=== PATIENT | male | born 1955 | race African-American/Black ===

== ENCOUNTER 2017-04-09 13:02 | Inpatient (IN) | payer MEDICARE, MEDICAID ==
[2017-04-09] MEDS ORDERED: Sodium Chloride 0.9% 2,000 ML IV ONE (14:22)
--- NOTE | 2017-04-09 14:26 | ED Physician Chart ---
ED Chief Complaint/HPI - Patient Information Date Seen:: 04/09/17 Time Seen:: 13:30 Chief Complaint:: SENT TO ER BY DR. WALKER FOR EVALUATION OF COUGH History of Present Illness:: THIS 61 YEAR OLD MALE WAS REFERRED TO THE ED FOR EVALUATION AND TREATMENT OF SEVERE COUGH. THE PATIENT'S COUGH WAS SO CONTINUOUS THAT HE WAS UNABLE TO PROVIDE A HISTORY OF PRESENT ILLNESS OR REVIEW OF SYSTEMS. THE ACCOMPANYING PAPERWORK DID NOT EXPLAIN WHY THE PATIENT HAD A TRACHEOSTOMY. Allergies:: Allergies Allergy/AdvReac Type Severity Reaction Status Date / Time No Known Allergies Allergy Verified 04/09/17 13:31 Vitals:: Vital Signs - 8 hr 04/09/17 13:34 Temp 99.9 F HR 114 RR 22 BP 135/91 O2 Sat % 95 ED Review of Systems - Review of Systems General/Constitutional: Other ( UNABLE TO OBTAIN ROS DUE TO SEVERE COUGHING AND RESPIRATORY DISTRESS.) ED Past Medical History - Past Medical History Family History: Other ( THE PATIENT WASN'T UNABLE TO PROVIDE PMH AND A CUTTING PAPERWORK DID NOT LIST IT.) Family Medical History - Family Member Mother History Unknown: Yes ED Physical Exam - Physical Examination General/Constitutional: Awake, Well-developed, well-nourished, Alert Other Gen/Cons comments:: THE PATIENT WAS IN SEVERE DISTRESS FROM CONTINUOUS COUGHING AND DIFFICULTY BREATHING. HE HAS A TRACHEAL STOMA AND WAS COUGHING YELLOWISH GREEN SECRETIONS ALMOST CONTINUOUSLY EXCEPT WHEN BEING SUCTIONED. Head: Atraumatic Eyes: Lids, conjuctiva normal, PERRL Skin: No rash, No ecchymosis, Well hydrated, No lymphadenopathy ENMT: External ears, nose nl ( PATENT TRACHEOSTOMY STOMA.) Other ENMT comments:: UNABLE TO EXAMINE OROPHARYNX DUE TO CONTINUOUS COUGHING AND PRODUCTION OF TENACIOUS SECRETIONS. SECRETIONS WERE GREENISH YELLOW IN COLOR. NO HEMOPTYSIS WAS PRESENT. Neck: No JVD, No nuchal rigidity, No mass, No stridor Other Respiratory comments:: ON AUSCULTATION OF THE CHEST THE PATIENT HAD PROLONGATION OF THE EXPIRATORY PHASE WITH DIFFUSE WHEEZING AND RHONCHI. THE WHEEZING AND EMEKA WERE SO LOUD THAT IT PREVENTED ADEQUATE AUSCULTATION OF THE HEART TONES. Other Cardio Vascular comments:: AUSCULTATION OF THE HEART WAS SEVERELY HAMPERED DUE TO NOISY BREATHING. PERIPHERAL PULSES WERE ADEQUATE IN ALL FOUR EXTREMITIES. TRACE PRETIBIAL EDEMA WAS PRESENT IN THE LEFT LOWER EXTREMITY. GI: No tenderness/rebounding/guarding, No organomegaly, No hernia, Nondistended , No mass/bruits, No McBurney tenderness Other GI comments:: RECTAL EXAMINATION WAS DEFERRED AT MY DISCRETION. : No CVA tenderness, NL external genitalia Extremities: No tenderness or effusion, Full ROM, normal strength in all extremities ( THE PATIENT WAS ABLE TO HOLD AND MANIPULATE THE YANHKOUR SUCTION DEVICE.) ED Labs/Radiology/EKG Results - Lab Results Results: Laboratory Tests 04/09/17 04/09/17 04/10/17 14:20 14:20 06:45 WBC 5.9 RBC 3.90 L Hgb 12.8 Hct 37.6 L MCV 96.5 MCH 32.8 H MCHC Differential 34.0 RDW 13.3 Plt Count 266 MPV 6.6 Neutrophils % 73.8 Lymphocytes % 12.8 L Monocytes % 12.1 H Eosinophils % 0.7 Basophils % 0.6 Sodium 136 Potassium 3.7 Chloride 106 Carbon Dioxide 21.4 Anion Gap 12.3 BUN 10 Creatinine 1.1 Est GFR ( Amer) > 60.0 Est GFR (Non-Af Amer) > 60.0 BUN/Creatinine Ratio 9.1 Glucose 76 Whole Bld Lactic Acid 3.28 H* Calcium 9.4 Total Bilirubin 0.5 AST 15 ALT 16 Alkaline Phosphatase 70 Total Protein 7.7 Albumin 4.1 L Globulin 3.6 Albumin/Globulin Ratio 1.1 04/10/17 06:45 WBC RBC Hgb Hct MCV MCH MCHC Differential RDW Plt Count MPV Neutrophils % Lymphocytes % Monocytes % Eosinophils % Basophils % Sodium 137 Potassium 3.6 Chloride 108 H Carbon Dioxide 23.3 Anion Gap 9.3 BUN 8 Creatinine 1.0 Est GFR ( Amer) > 60.0 Est GFR (Non-Af Amer) > 60.0 BUN/Creatinine Ratio 8.0 Glucose 106 H Whole Bld Lactic Acid Calcium 8.9 Total Bilirubin 0.5 AST 12 L ALT 13 Alkaline Phosphatase 60 Total Protein 6.9 Albumin 3.6 L Globulin 3.3 Albumin/Globulin Ratio 1.1 LABORATORY ANALYSIS: THE CBC WAS UNREMARKABLE IN THAT THE WHITE COUNT WAS 5.9 WITH THE HEMOGLOBIN LEVEL OF 12.8. THE PLATELET COUNT WAS 266. METABOLIC STUDIES SHOWED THAT ELECTROLYTES WERE ALL WITHIN NORMAL PARAMETERS. THE WHOLE BLOOD LACTIC ACID LEVEL WAS ELEVATED AND IN THE MID-THREE RANGE. LIVER FUNCTION STUDIES WERE WITHIN NORMAL PARAMETERS. SINGLE VIEW CHEST X-RAY: NO CARDIOMEGALY OR CHF. NO MEDIASTINAL WHITENING. NO PNEUMOTHORAX. NO AREAS OF PULMONARY CONSOLIDATION WERE PRESENT. THE PATIENT HAD PROMINENT INTERSTITIAL MARKINGS THROUGHOUT ALL LUNG SWAN. IMPRESSION: NO ACUTE CARDIOPULMONARY FINDINGS. ED Assessment - Assessment General Assessment: CASE SUMMARY: THIS 61-YEAR-OLD MALE WAS BROUGHT TO THE EMERGENCY DEPARTMENT FOR EVALUATION AND TREATMENT OF SEVERE COUGH. UPON HIS ARRIVAL HE WAS AWAKE AND ALERT WITH ALMOST CONTINUOUS COUGHING. AUSCULTATION OF THE LUNGS SHOWED DIFFUSE BRONCHOSPASM WHICH WAS ADDRESSED WITH NEBULIZED ALBUTEROL. THROUGHOUT THE ER COURSE THE PATIENT MAINTAINED AN ADEQUATE OXYGEN SATURATION ON ROOM AIR. THE O2 SATURATION WAS IN THE HIGH 90 RANGE WITHOUT SUPPLEMENTAL OXYGEN. THE PATIENT REQUIRED ALMOST CONTINUOUS SUCTIONING OF HIS TRACHEOSTOMY TO MAINTAIN ADEQUATE ARTERIAL OXYGENATION. PATIENT WAS TREATED WITH 500 MG OF AZITHROMYCIN ON HIS LACTIC ACID RETURNED ELEVATED. THE PATIENT WAS NEVER HYPOTENSIVE DURING THE HOSPITAL COURSE. MDM DDX FOR COUGH AND RESPIRATORY DISTRESS: NOT PNEUMOTHORAX BASED ON CHEST X- RAY NOT CONGESTIVE FAILURE BASED ON CHEST X-RAY AND HISTORY. NOT METABOLIC ACIDOSIS BASED ON LABORATORY RESULTS. ED Septic Shock - . Is Septic Shock (SBP<90, OR Lactate>4 mmol\L) present?: No - <6hrs of presentation: Vital Signs: Vital Signs - 8 hr 04/09/17 13:34 Temp 99.9 F HR 114 RR 22 BP 135/91 O2 Sat % 95 ED Reassessment (Disposition) - Reassessment Reassessment Condition:: Improved - Diagnosis Diagnosis:: SEVERE BRONCHITIS, ELEVATED LACTIC ACID - Patient Disposition Discharge/Transfer:: Acute Care w/in this hosp Accepting Physician:: DR. WALKER ED Discharge Plan - Patient Disposition Admit/Discharge/Transfer: Acute Care w/in this hosp Condition at Disposition: Stable
[2017-04-09] MEDS ORDERED: Albuterol Nebulizer 2.5mg/3mL HHN STA (14:29)
[2017-04-09] MEDS ORDERED: Albuterol Nebulizer 2.5mg/3mL HHN ONE (14:35)
[2017-04-09 14:56] LABS: ALB/GLOB RATIO 1.1 (1.0-1.8); ALBUMIN 4.1 gm/dL (4.2-5.5); ALKALINE PHOSPHATASE 70 U/L (34-104); ANION GAP 12.3 (7.0-16.0); BILIRUBIN,TOTAL 0.5 mg/dL (0.3-1.0); BUN - UREA NITROGEN 10 mg/dL (7-25); CALCIUM SERUM 9.4 mg/dL (8.6-10.3); CARBON DIOXIDE 21.4 mEq/L (21.0-31.0); CHLORIDE 106 mEq/L (98-107); CREATININE - SERUM 1.1 mg/dL (0.7-1.3); GFR AFRICAN-AMERICAN > 60.0 ml/min (>90); GFR NON AFRICAN-AMERICAN > 60.0 ml/min; GLUCOSE 76 mg/dL (70-105); POTASSIUM SERUM 3.7 mEq/L (3.5-5.1); SGOT 15 U/L (13-39); SGPT/ALT 16 U/L (7-52); SODIUM SERUM 136 mEq/L (136-145); TOTAL PROTEIN,SERUM 7.7 gm/dL (6.0-8.3)
--- NOTE | 2017-04-09 14:56 | Diagnostic Imaging Report ---
CHEST X-RAY: AP view INDICATION: Cough COMPARISON: None FINDINGS: Increased interstitial lung markings are noted with suboptimal lung volumes. There is no focal consolidation or pleural effusions The heart is normal in size. The osseous structures are intact. External material is seen projecting along left upper quadrant. IMPRESSION: Increased interstitial lung markings, nonspecific. No focal consolidation notified.
[2017-04-09] MEDS ORDERED: Morphine Sulfate 4 mg/mL 1mL Syr IV STA (15:27)
[2017-04-09] MEDS ORDERED: Morphine Sulfate 4 mg/mL 1mL Syr ONE (15:28)
[2017-04-09] MEDS ORDERED: cefTRIAXone 1 GM in Sodium Chloride 0.9% 100 ML IV ONE (17:15)
[2017-04-09] MEDS ORDERED: Azithromycin 500 MG in Sodium Chloride 0.9% 250 ML IV ONE ×2 (17:18→20:47)
[2017-04-09] MEDS ORDERED: HYDROmorphone 1 mg/mL 1mL Syr IVP ONE (17:39)
[2017-04-09] MEDS ORDERED: HYDROmorphone 1 mg/mL 1mL Syr ONE (17:42)
[2017-04-09] MEDS ORDERED: Hydrocodone/APAP 5mg/325mg Tab PO PRN (19:09)
[2017-04-09] MEDS: Albuterol/Ipratropium Neb 3 ML AERS HHN SCH (19:29)
--- NOTE | 2017-04-09 19:58 | History & Physical ---
ADMIT DATE: 04/09/2017 CHIEF COMPLAINT: Severe chest and throat congestion and shortness of breath. HISTORY OF PRESENT ILLNESS: A 61-year-old male with underlying history of chronic respiratory failure, status post tracheostomy, was sent to the Emergency Room for evaluation of the severe chest congestion and shortness of breath. The patient evaluated in the Emergency Room. During Emergency Room noticed to have an acute respiratory distress, was given tracheal suctioning, bronchodilator treatments, and subsequently admitted for further treatments. The patient has not been feeling well for the past 3-4 days, subsequently got worse. He noticed to have some chills, but no documented fever, no diarrhea, no vomiting, no headache. The patient said that he had a copious amount of greenish tracheal thick secretions, noticed to have difficulty breathing. PAST MEDICAL HISTORY: Laryngeal carcinoma, chronic pain syndrome, hypothyroidism, depression, anxiety. PAST SURGICAL HISTORY: Laryngeal tracheal surgery in the past and tracheostomy placed in the past. SOCIAL HISTORY: Lives at home. Denies any alcohol, tobacco or street drug use. CURRENT MEDICATIONS: At home, the patient was [place], morphine, trazodone, Lexapro, and vitamin supplements. REVIEW OF SYSTEMS: As per HPI, 12-point system reviewed, appears negative. PHYSICAL EXAMINATION: VITAL SIGNS: Temperature 97.6, pulse 94, respirations 18, blood pressure 130/80, 96% on room air. GENERAL APPEARANCE: The patient does not seem in acute distress. HEART: S1, S2 normal. LUNGS: Bilateral extensive rales noted. ABDOMEN: Soft, nontender. NEUROLOGIC: The patient awake. Moves all. Grossly nonfocal exams. EXTREMITIES: Negative for edema noted. AVAILABLE LABORATORY DATA: Has been reviewed. ASSESSMENT: 1. Acute tracheobronchitis. 2. Chronic respiratory failure. 3. History of laryngeal cancer. 4. Elevated lactic acid. 5. Hypothyroidism. 6. Chronic pain syndrome. 7. Anxiety. PLAN: The patient admitted to Med/Surg floor, started on IV Rocephin and zithromycin. Pulmonology was consulted. DuoNeb nebulizer treatment will be given. Home medications were reconciled continue. Discussed with patient's clinical condition. Plan of care per the nursing staff. JOB# [id number]
[2017-04-09] MEDS ORDERED: Albuterol/Ipratropium Neb 3 ML AERS HHN ONE (20:46)
[2017-04-09] MEDS ORDERED: cefTRIAXone 1 GM in Sodium Chloride 0.9% 50 ML IV SCH (20:47)
[2017-04-09 21:36] VITALS: BP 130/83
[2017-04-10] MEDS ORDERED: Albuterol Nebulizer 2.5mg/3mL HHN PRN
[2017-04-10] MEDS: Albuterol/Ipratropium Neb 3 ML AERS HHN SCH ×4 (01:12→12:27)
[2017-04-10 07:03] LABS: % BASOPHILS 0.6 % (0.0-2.0); % EOSINOPHILS 0.7 % (0.0-5.0); % LYMPHOCYTES 12.8 % (20.0-50.0); % MONOCYTES 12.1 % (2.0-10.0); % NEUTROPHILS 73.8 % (40.0-80.0); HEMATOCRIT 37.6 % (41.0-60); HEMOGLOBIN 12.8 gm/dL (12-16); LYMPHOCYTE ABSOLUTE 0.8 Th/cmm (1.5-3.0); MEAN CELL VOLUME 96.5 fl (80-99); MEAN CORPUSCULAR HEMOGLOBIN 32.8 pg (26.0-30.0); MEAN PLATELET VOLUME 6.6 fl; MONOCYTE ABSOLUTE 0.7 Th/cmm (0.3-1.0); NEUTROPHILE ABSOLUTE 4.4 Th/cmm (1.8-8.0); PLATELET COUNT 266 Th/cmm (150-400); RED CELL DISTRIBUTION WIDTH 13.3 % (11.5-20.0); WHITE BLOOD COUNT 5.9 Th/cmm (4.8-10.8)
[2017-04-10 07:30] LABS: ALB/GLOB RATIO 1.1 (1.0-1.8); ALBUMIN 3.6 gm/dL (4.2-5.5); ALKALINE PHOSPHATASE 60 U/L (34-104); ANION GAP 9.3 (7.0-16.0); BILIRUBIN,TOTAL 0.5 mg/dL (0.3-1.0); BUN - UREA NITROGEN 8 mg/dL (7-25); CALCIUM SERUM 8.9 mg/dL (8.6-10.3); CARBON DIOXIDE 23.3 mEq/L (21.0-31.0); CHLORIDE 108 mEq/L (98-107); GFR AFRICAN-AMERICAN > 60.0 ml/min (>90); GFR NON AFRICAN-AMERICAN > 60.0 ml/min; GLUCOSE 106 mg/dL (70-105); POTASSIUM SERUM 3.6 mEq/L (3.5-5.1); SGOT 12 U/L (13-39); SGPT/ALT 13 U/L (7-52); SODIUM SERUM 137 mEq/L (136-145); TOTAL PROTEIN,SERUM 6.9 gm/dL (6.0-8.3)
[2017-04-10] MEDS: Levothyroxine 0.075 Mg Tab PO SCH ×2 (08:38→15:10)
[2017-04-10] MEDS: Hydrocodone/APAP 10 mg/325 mg Tab PO PRN ×2 (09:09→15:10)
--- NOTE | 2017-04-10 18:50 | General Progress Note ---
Subjective - Review of Systems Service Date: 04/10/17 Subjective: Patient feels better congestion is better afebrile Objective - Results Result Diagrams: 04/10/17 06:45 04/10/17 06:45 Recent Labs: Laboratory Last Values WBC 5.9 Th/cmm (4.8-10.8) 04/10/17 06:45 RBC 3.90 Mil/cmm (4.30-5.70) L 04/10/17 06:45 Hgb 12.8 gm/dL (12-16) 04/10/17 06:45 Hct 37.6 % (41.0-60) L 04/10/17 06:45 MCV 96.5 fl (80-99) 04/10/17 06:45 MCH 32.8 pg (26.0-30.0) H 04/10/17 06:45 MCHC Differential 34.0 pg (28.0-36.0) 04/10/17 06:45 RDW 13.3 % (11.5-20.0) 04/10/17 06:45 Plt Count 266 Th/cmm (150-400) 04/10/17 06:45 MPV 6.6 fl 04/10/17 06:45 Neutrophils % 73.8 % (40.0-80.0) 04/10/17 06:45 Lymphocytes % 12.8 % (20.0-50.0) L 04/10/17 06:45 Monocytes % 12.1 % (2.0-10.0) H 04/10/17 06:45 Eosinophils % 0.7 % (0.0-5.0) 04/10/17 06:45 Basophils % 0.6 % (0.0-2.0) 04/10/17 06:45 Sodium 137 mEq/L (136-145) 04/10/17 06:45 Potassium 3.6 mEq/L (3.5-5.1) 04/10/17 06:45 Chloride 108 mEq/L (98-107) H 04/10/17 06:45 Carbon Dioxide 23.3 mEq/L (21.0-31.0) 04/10/17 06:45 Anion Gap 9.3 (7.0-16.0) 04/10/17 06:45 BUN 8 mg/dL (7-25) 04/10/17 06:45 Creatinine 1.0 mg/dL (0.7-1.3) 04/10/17 06:45 Est GFR ( Amer) > 60.0 ml/min (>90) 04/10/17 06:45 Est GFR (Non-Af Amer) > 60.0 ml/min 04/10/17 06:45 BUN/Creatinine Ratio 8.0 04/10/17 06:45 Glucose 106 mg/dL (70-105) H 04/10/17 06:45 Whole Bld Lactic Acid 3.28 mmol/L (0.60-1.99) H* 04/09/17 14:20 Calcium 8.9 mg/dL (8.6-10.3) 04/10/17 06:45 Total Bilirubin 0.5 mg/dL (0.3-1.0) 04/10/17 06:45 AST 12 U/L (13-39) L 04/10/17 06:45 ALT 13 U/L (7-52) 04/10/17 06:45 Alkaline Phosphatase 60 U/L (34-104) 04/10/17 06:45 Total Protein 6.9 gm/dL (6.0-8.3) 04/10/17 06:45 Albumin 3.6 gm/dL (4.2-5.5) L 04/10/17 06:45 Globulin 3.3 gm/dL 04/10/17 06:45 Albumin/Globulin Ratio 1.1 (1.0-1.8) 04/10/17 06:45 - Physical Exam Vitals and I&O: Vital Signs Temp 98.2 F 04/10/17 16:00 Pulse 77 04/10/17 16:00 Resp 18 04/10/17 16:00 BP 117/75 04/10/17 16:00 Pulse Ox 98 04/10/17 16:00 Intake & Output 04/09/17 04/10/17 04/10/17 18:59 06:59 18:59 Intake Total 300 200 800 Output Total 1000 200 Balance 300 -800 600 Weight (lbs) 105.233 kg 105.233 kg Intake: Intake, IV Amount 300 Oral 200 800 Output: Urine 800 Stool 0 Other 200 200 Other: # Voids 3 3 # Bowel Movements 0 0 Active Medications: Current Medications Acetaminophen/Hydrocodone Bitart ([place] 10 Mg/325 Mg) 1 tab PO Q6H PRN PRN Reason: Severe Pain Stop: 06/08/17 21:49 Last Admin: 04/10/17 15:10 Dose: 1 tab Albuterol Sulfate (Albuterol 2.5mg/3ml Neb Ud) 2.5 mg HHN Q2H PRN PRN Reason: Shortness of Breath Stop: 06/09/17 00:00 Albuterol/Ipratropium (Duoneb Neb) 3 ml HHN [id number] [facility] Stop: 06/09/17 18:59 Budesonide (Pulmicort) 0.5 mg HHN BIDRT [facility] Stop: 06/09/17 18:59 Cyanocobalamin (Vitamin B12) 1,000 mcg PO DAILY [facility] Stop: 06/09/17 08:59 Last Admin: 04/10/17 09:09 Dose: 1,000 mcg Escitalopram Oxalate (Lexapro) 20 mg PO DAILY ESTEFANÍA PRN Reason: Protocol Stop: 06/09/17 08:59 Ceftriaxone Sodium 1 gm/ (Sodium Chloride) 50 mls @ 100 mls/hr IV Q24HR ESTEFAN[facility]A Stop: 06/09/17 20:59 Azithromycin 250 mg/ Sodium (Chloride) 250 mls @ 250 mls/hr IV Q24HR [facility] Stop: 06/09/17 20:59 Ketorolac Tromethamine (Toradol) 15 mg IVP Q6HR PRN PRN Reason: Severe Pain Stop: 06/08/17 21:51 Last Admin: 04/10/17 18:32 Dose: 15 mg Levothyroxine Sodium (Synthroid) 0.075 mg PO QDAC [facility] Stop: 06/09/17 07:29 Last Admin: 04/10/17 15:10 Dose: 0.075 mg Morphine Sulfate (Ms-Contin) 30 mg PO BID [facility] Stop: 06/09/17 16:59 Oseltamivir Phosphate (Tamiflu) 75 mg PO BID [facility] Stop: 04/15/17 17:30 Trazodone HCl (Desyrel) 100 mg PO HS ESTEFANÍA PRN Reason: Protocol Stop: 06/08/17 20:59 Last Admin: 04/09/17 22:28 Dose: 100 mg Cardiovascular: Regular rate Lungs: Other (rales better) Assessment/Plan - Problem List Patient Problems: All Active Problems COUGH AND CONGESTION (Acute) - Assessment Assessment: Acute trachebronchitis Chronic respiratory failure Hypothyroidism Low back pain Mental health disorder - Plan Plan: Patient improving Continue antibiotics Pulmonary on board Bronchodilator Trach site suction Pain meds Discussed with the patient re: his diagnosis and plan of care He understood well Plan of care discussed with nursing staff
[2017-04-10] MEDS ORDERED: Budesonide 0.5 Mg/2 mL Ud HHN SCH (19:00)
[2017-04-10] MEDS ORDERED: Albuterol/Ipratropium Neb 3 ML AERS HHN SCH (19:00)
[2017-04-10] MEDS ORDERED: cefTRIAXone 1 GM in Sodium Chloride 0.9% 50 ML IV SCH (21:00)
[2017-04-10] MEDS ORDERED: Azithromycin 250 MG in Sodium Chloride 0.9% 250 ML IV SCH (21:00)
--- NOTE | 2017-04-11 00:11 | Progress Notes ---
DATE: 04/10/2017 PULMONARY AND CRITICAL CARE CONSULTATION REASON FOR CONSULTATION: Chest discomfort and shortness of breath. CONSULT NOTE: This is a 61-year-old gentleman who has a trach from previous tracheostomy as well as a history of previous laryngeal carcinoma. The patient was admitted up here because "chest congestion and shortness of breath." Subsequently, the patient with quite shortness of breath on initial treatment. Subsequently, was stabilized and was sent to the regular floor for step-down unit for further care and necessary treatment. The patient has been coughing more. There is some more bronchorrhea, but could not see the sputum. No chest pain, questionable chills, and also did has some wheezing, etc. PAST MEDICAL HISTORY: History of laryngeal carcinoma, history of chronic pain syndrome, otherwise unremarkable; and a history of depression and anxiety. SMOKING HISTORY: It is very hard to get him for me, but suspect that he may have a smoking issue too. ALLERGIC HISTORY: Nil. CURRENT MEDICATIONS: Morphine, trazodone, Lexapro, vitamin supplement, etc. PHYSICAL EXAMINATION: GENERAL: This is a middle-aged, slightly elderly looking gentleman, awake, alert, oriented, not in any acute distress. VITAL SIGNS: T-max 99-98, pulse is 90, respirations in 20s, blood pressure 120/70, saturation in mid 90s on room air. HEENT: Examination of the head is essentially unremarkable. Pupils appear to be equal and reacting to light. Conjunctivae are slightly pallor. Oral cavity, limited exam, unremarkable. NECK: Shows tracheostomy tube, tracheostomy scar on the anterior portion of the chest and lower neck. CHEST: Shows occasional wheezing with questionable secretory noise. HEART: Regular. ABDOMEN: Soft and nontender. EXTREMITIES: Shows no peripheral edema. ASSESSMENT: The patient has acute tracheobronchitis, exact detail not clear, questionable viral could be contain, contributory with a previous history of laryngeal cancer with history of questionable suggestive of tobacco abuse; though, the patient denies at this time. PLANS AND SUGGESTIONS: We will go ahead with aggressive inhalation treatment, bronchodilator treatment, and ____. We will get influenza screening as well as empirically put on Tamiflu, etc. and go from there. [facility]# [id number]
== END 2017-04-10 20:45 | disposition left against medical advice (07) | DRG 202 ==
LOC: ER 13:02 → MSI 15:45
PROVIDERS: ADMIT Family Medicine; ATTEND Family Medicine
DX: J20.9 Acute bronchitis, unspecified (principal); J96.10 Chronic respiratory failure, unspecified whether with hypoxia or hypercapnia; Z93.0 Tracheostomy status; E03.9 Hypothyroidism, unspecified; G89.4 Chronic pain syndrome; M54.5 Low back pain; F99 Mental disorder, not otherwise specified; F41.9 Anxiety disorder, unspecified; Z53.21 Procedure and treatment not carried out due to patient leaving prior to being seen by health care provider; F32.9 Major depressive disorder, single episode, unspecified; Z85.09 Personal history of malignant neoplasm of other digestive organs; Z85.21 Personal history of malignant neoplasm of larynx
CPT/HCPCS: 36415-UA; 71045-TC; 80053-TC; 83605; 85025-TC; 87070; 94640; 94760; 96374; 96375; J0456; J0696; J1170; J1885; J2405; J7030; J7040; J7613; Z7610